=== PATIENT | female | born 1940 | race Caucasian/White ===

== ENCOUNTER 2021-05-30 16:08 | Emergency (ER) | payer MEDICARE ==
[2021-05-30] MEDS ORDERED: NORCO 5/325 MG PO ONE ×2 (16:24→17:07)
--- NOTE | 2021-05-30 16:49 | ERPHSYRPT ---
- History of Present Illness Time Seen by Provider: 05/30/21 16:15 Source: patient Exam Limitations: no limitations Patient Subjective Stated Complaint: Pt caught her left foot getting out of shower and scraped her bates down a bar causing a skin tear down the entire bates and injured her foot Triage Nursing Assessment: Pt brought self to the ER, vitals wnl, rates pain as 8/10, 23 cm skin tear down the left bates, bruising to the bates and to the left foot, denies hitting head or LOC, denies being dizzy or light-headed, pulses normal, skin n/w/d Physician History: 80 years old female up-to-date with tetanus presented in the ER with chief complaint of left lower anterior leg superficial skin lesion after she tripped and drag are leg while getting out of shower, she is also having abrasion and swelling left anterior foot proximal. She was able to get up and walk. Complaining of dull aching mild to moderate pain with palpation and movements. No injury anywhere else. Method of Injury: fell Occurred: just prior to arrival Quality: sharpness Severity of Pain-Max: moderate Severity of Pain-Current: moderate Lower Extremities Pain: leg: left, foot: left, ankle: left Modifying Factors: Improves With: immobilization. Worsens With: movement Allergies/Adverse Reactions: Penicillins Allergy (Verified 05/30/21 16:32) Sulfa (Sulfonamide Antibiotics) Allergy (Verified 05/30/21 16:32) Home Medications: Aspirin 81 gm Chew [Baby Aspirin 81 mg Chew] 81 mg 5XD 10/30/15 [History] Raloxifene HCl 60 mg [Evista 60 MG] 60 mg DAILY 10/30/15 [History] Simvastatin [Zocor] 40 mg DAILY 10/30/15 [History] Escitalopram Oxalate [Lexapro] 20 mg PO DAILY 05/30/21 [History] Tolterodine Tartrate [Detrol LA] 4 mg PO DAILY 05/30/21 [History] Triamterene/Hydrochlorothiazid [Triamterene-Hctz 37.5-25 mg Tb] 1 each PO DAILY 05/30/21 [History] Hx Tetanus, Diphtheria Vaccination/Date Given: Yes Hx Influenza Vaccination/Date Given: No Hx Pneumococcal Vaccination/Date Given: No Travel Risk - International Travel Have you traveled outside of the country in past 3 weeks: No - Coronavirus Screening Are you exhibiting any of the following symptoms?: No Close contact with a COVID-19 positive Pt in past 14-21 Days: No - Vaccine Status Have you recieved a Covid-19 vaccination: Yes Quality Improvement Consultant: Moderna - Vaccination Dates Date of 2cond Vaccination (if applicable): 01/2021 - Review of Systems Constitutional: No Symptoms Eyes: No Symptoms Ears, Nose, & Throat: No Symptoms Respiratory: No Symptoms Cardiac: No Symptoms Abdominal/Gastrointestinal: No Symptoms Genitourinary Symptoms: No Symptoms Musculoskeletal: Injury Skin: Skin Lesions Neurological: No Symptoms Psychological: No Symptoms Endocrine: No Symptoms - Past Medical History Pertinent Past Medical History: Yes Other Medical History: polymylalgia - Past Surgical History Past Surgical History: Yes Gastrointestinal: Appendectomy Other Surgical History: abcess, decompression of lower back - Social History Smoking Status: Never smoker Exposure to second hand smoke: No Drug Use: none Patient Lives Alone: No - Female History Hx Now: No - Nursing Vital Signs Nursing Vital Signs: Initial Vital Signs Temperature 97.5 F 05/30/21 16:19 Pulse Rate 85 05/30/21 16:19 Blood Pressure 139/75 05/30/21 16:19 O2 Sat by Pulse Oximetry 97 05/30/21 16:19 Pain Scale Pain Intensity 8 - Physical Exam General Appearance: no apparent distress, alert Eyes, Ears, Nose, Throat Exam: normal ENT inspection Neck Exam: normal inspection, non-tender, supple, full range of motion Cardiovascular/Respiratory Exam: chest non-tender, normal breath sounds, regular rate/rhythm Gastrointestinal/Abdominal Exam: non-tender, soft Back Exam: normal inspection, normal range of motion Hips Exam: bilateral: non-tender, normal inspection, normal range of motion Legs Exam: right leg: non-tender, normal inspection, normal range of motion, no evidence of injury, left leg: abrasions, bone tenderness (Anterior bates with skin loss. Minimal swelling), pain, soft tissue tenderness, swelling Knees Exam: bilateral knee: non-tender, normal inspection, normal range of motion, no evidence of injury Ankle Exam: right ankle: non-tender, normal inspection, normal range of motion, no evidence of injury, left ankle: abrasions/laceration (Proximal anterolateral foot), pain, soft tissue tenderness, swelling Foot Exam: left foot: abrasions/lacerations, pain, soft tissue tenderness, swelling Neuro/Tendon Exam: normal sensation, normal motor functions Mental Status Exam: alert, oriented x 3 Skin Exam: normal color, abrasion SpO2 Interpretation: normal SpO2: 97 O2 Delivery: Room Air Ordered Tests: Active Orders 24 hr Category Date Time Status FOOT (MINIMUM 3 VIEWS) Stat Exams 05/30/21 16:46 Completed LOWER LEG Stat Exams 05/30/21 Completed Medication Summary Discontinued Medications Generic Name Dose Route Start Last Admin Trade Name Patricia PRN Reason Stop Dose Admin Hydrocodone Bitart/Acetaminophen 1 tab 05/30/21 16:24 Hydrocodone/Apap 5/325 Mg Tablet PO 05/30/21 16:25 STAT ONE - Progress Progress: improved Progress Note: 05/30/21 given pain medications for symptomatic relief. Feeling much better on reevaluation. Superficial skin lesions, cannot suture. Nonadherent dressing applied with bacitracin. Outpatient follow-up recommended. Ruled out fracture dislocation. Counseled pt/family regarding: diagnosis, need for follow-up, rad results - Departure Departure Disposition: Home Clinical Impression: Fall, Abrasion, left lower leg, initial encounter, Leg laceration Condition: Stable Critical Care Time: No Referrals: Alberto CAMPBELL [Primary Care Provider] - Follow Up with PCP/3 days Instructions: Contusion (DC), Preventing Falls Additional Instructions: Take Tylenol as needed for aches and pains. Keep it clean. Daily dressing changes. Follow-up outpatient with primary care and may need to referral for wound care. Return to ER for worsening pain. Weightbearing as tolerated.
--- NOTE | 2021-05-30 17:02 | XRAY ---
Indication: Anterior lower leg swelling and laceration following fall. Comparison: None 3 nonweightbearing views left foot demonstrates small heel spurs, tiny cuboid accessory ossicle, and faint scattered vascular calcifications. No other bony, articular, or soft tissue abnormalities.
--- NOTE | 2021-05-30 17:02 | XRAY ---
Indication: Swelling and laceration following fall. Comparison: October 30, 2015. 2 view left lower leg demonstrates new distal anterior soft tissue swelling/laceration. Incidental small spurring calcaneus/patella and faint scattered vascular calcifications. No other bony, articular, or soft tissue abnormalities.
[2021-05-30 17:18] VITALS: BP 135/71; PULSE 76; O2SAT 95
[2021-05-30] MEDS ORDERED: NORCO 5/325 MG ONE (17:18)
== END 2021-05-30 17:28 | disposition home or self-care (01) ==
LOC: ED 16:08
DX: S80.812A Abrasion, left lower leg, initial encounter (principal); S81.812A Laceration without foreign body, left lower leg, initial encounter; W01.0XXA Fall on same level from slipping, tripping and stumbling without subsequent striking against object, initial encounter; Y93.E1 Activity, personal bathing and showering; Y92.002 Bathroom of unspecified non-institutional (private) residence as the place of occurrence of the external cause; Z79.899 Other long term (current) drug therapy
CPT/HCPCS: 73590; 73630; 99284; A9270-GY